=== PATIENT | female | born 1950 | race Caucasian/White ===

== ENCOUNTER 2019-03-29 06:18 | Inpatient (IN) | payer MEDICARE ==
[~2019-03-29 06:18] MED LIST: ACETAMINOPHEN 325 MG TABLET PO PRN; CEFAZOLIN SODIUM 2 GM in DEXTROSE 5%-WATER 100 ML IV PRN; CELECOXIB 200 MG CAPSULE PO PRN; GABAPENTIN 100 MG CAPSULE PO PRN; LACTATED RINGERS 1000 ML IV PRN; LIDOCAINE 0.5% INJ-PF (5 MG/ML) 50 ML SDV SUBCUT PRN; ONDANSETRON HCL INJ/PF 4 MG/2 ML SDV IV PRN; OXYCODONE HCL SR 10 MG TABLET PO PRN; SCOPOLAMINE HYDROBROMIDE 1.5 MG PATCH.TD72 TD PRN; TRAMADOL HCL 50 MG TABLET PO PRN; VANCOMYCIN HCL 1,000 MG in DEXTROSE 5%-WATER 250 ML IV PRN
[2019-03-29] MEDS ORDERED: MIDAZOLAM 2 MG/2 ML INJ ONE (07:03)
[2019-03-29] MEDS ORDERED: PROPOFOL INJ 200 MG/20 ML VIAL IV ONE (07:03)
[2019-03-29] MEDS ORDERED: FENTANYL CITRATE INJ/PF 100 MCG/2 ML AMPUL ONE (07:03)
[2019-03-29] MEDS ORDERED: TRANEXAMIC ACID INJ/PF 1,000 MG/10 ML SDV ONE ×2 (07:03→13:40)
[2019-03-29] MEDS ORDERED: ACETAMINOPHEN 325 MG TABLET ONE (08:18)
[2019-03-29] MEDS ORDERED: SCOPOLAMINE HYDROBROMIDE 1.5 MG PATCH.TD72 ONE (08:18)
[2019-03-29] MEDS ORDERED: CELECOXIB 200 MG CAPSULE ONE (08:18)
[2019-03-29] MEDS ORDERED: TRAMADOL HCL 50 MG TABLET ONE (08:18)
[2019-03-29] MEDS ORDERED: OXYCODONE HCL SR 10 MG TABLET PO ONE (08:18)
[2019-03-29] MEDS ORDERED: ONDANSETRON HCL INJ/PF 4 MG/2 ML SDV ONE (08:19)
[2019-03-29] MEDS ORDERED: VANCOMYCIN HCL INJ 1000 MG VIAL ONE (08:32)
[2019-03-29] MEDS ORDERED: BUPIVACAINE HCL 0.25 % INJ/PF (2.5 MG/1 ML) 30 ML VIAL ONE (08:32)
[2019-03-29] MEDS ORDERED: GENTAMICIN SULFATE INJ 80 MG/2 ML VIAL ONE (08:32)
[2019-03-29] MEDS ORDERED: BACITRACIN INJ 50,000 UNIT VIAL ONE (08:33)
[2019-03-29] MEDS ORDERED: KETOROLAC TROMETHAMINE INJ/PF 30 MG/1 ML SDV ONE (08:34)
[2019-03-29] MEDS ORDERED: DIAZEPAM INJ 10 MG/2 ML DISP.SYRIN ONE (08:51)
[2019-03-29] MEDS ORDERED: LIDOCAINE 1% INJ-PF (10 MG/ML) 30 ML SDV ONE (10:20)
[2019-03-29] MEDS ORDERED: ONDANSETRON HCL INJ/PF 4 MG/2 ML SDV IV PRN (11:32)
[2019-03-29] MEDS ORDERED: MEPERIDINE HCL/PF INJ 25 MG/1 ML DISP.SYRIN IV PRN (11:32)
[2019-03-29] MEDS ORDERED: OXYCODONE-ACETAMINOPHEN 5-325 MG TABLET PO PRN ×2 (11:32)
[2019-03-29] MEDS ORDERED: MORPHINE SULFATE 10 MG/ML INJ IV PRN (11:32)
[2019-03-29] MEDS ORDERED: DIPHENHYDRAMINE HCL 50 MG/ML VIAL IV PRN (11:32)
[2019-03-29] MEDS ORDERED: FENTANYL CITRATE INJ/PF 100 MCG/2 ML AMPUL IV PRN ×3 (11:32)
--- NOTE | 2019-03-29 12:55 | Operative Report ---
Operative Report DATE OF SURGERY: 03/29/19 PREOPERATIVE DIAGNOSIS: Severe right hip osteoarthritis POSTOPERATIVE DIAGNOSIS: Severe right hip primary osteoarthritis OPERATION: Right total hip arthroplasty SURGEON: KHAI URIOSTEGUI JR ANESTHESIA: Spinal COMPLICATIONS: None ESTIMATED BLOOD LOSS: 150 cc PROCEDURE: Implants: Biomet Taperloc micro-plasty #7 lateralized stem, 48 mm G7 acetabulum, 28 mm -6 ceramic head with a dual mobility construct. BRIEF HISTORY: 68year old female with severe degenerative arthritis of right hip, which has failed conservative treatment and has elected for a total hip arthroplasty. Risks include but are not limited to bleeding, infection, anesthesia, , injury to nerve or vessel, pain, scar, leg length inequality, dislocation, future surgery, and blood clots. Patient read through the pre-op counseling form and signed and solicited for surgery on their right hip. OPERATIVE PROCEDURE: Patient was brought to the operating room on and underwent spinal anesthesia. 2 grams of Ancef and 1 g of vancomycin was given. After proper anesthesia was obtained, patient was positioned, padded, prepped, and carlyn ped in the usual sterile fashion on the operating room table. Appropriate time out was performed. A anterior approach to the hip was undertaken with meticulous hemostasis. The femoral neck was cut in line with the femoral broach and the femoral head was removed. The acetabulum was then exposed with three retractors in an atraumatic fashion. Soft tissue and osteophytes were removed. Medialization reaming was performed followed by anatomic reaming up to accept a 48 mm acetabulum. The 48 mm acetabulum was impacted into correct position and stability checked with Lupe test. Due to the patient's spine disease include a multilevel fusion, the decision was made to proceed with a dual mobility construct. A dual mobility liner was impacted into the shell with good stability. Impinging osteophytes were removed. Attention was then directed toward the femur, which was exposed with two retractors in an atraumatic fashion. corner cutter, lateralization rasping and then broaching up to accept a #8 femur. With a lateralized offset neck and a 6 head, stability was good in flexion and extension with 5 mm long operative leg length. Because of this leg length discrepancy we decided to return to a #7 broach and then calcar ream down to the level of the broach. After doing this we re-broached with a #7 to ensure ideal seating. We then re-trialed with a lateralized -6 head which still had ideal stability and now equal leg lengths. The real #7 lateral offset femur was impacted into a copiously irrigated femoral canal. A 28 m -6 ceramic head in conjunction with a dual mobility liner was impacted on a clean dry femoral taper. The hip was irrigated and reduced, further irrigation with antibiotic solution, betadine solution, then antibiotic solution. Bleeders were coagulated with bovie cautery. The fascia was then closed with number 2 Stratofix; the subcutaneous tissue closed with interrupted 2-0 Monocryl then running 3-0 monocryl subcuticular. Dermabond skin glue was applied followd by a silver dressing. All needle sponge and instrument counts were correct. Patient was awakened from sedation anesthesia and taken to recovery room in good condition. Thank you, Khai Uriostegui,
[2019-03-29] MEDS ORDERED: EPINEPHRINE INJ/PF 1 MG/1 ML AMPULE ONE (13:06)
--- NOTE | 2019-03-29 14:22 | RADIOLOGY REPORT (SQ) ---
EXAM DESCRIPTION: HIP IN OPERATING RM; NO CHG FLUORO COMPLETED DATE/TIME: 03/29/2019 1:48 pm REASON FOR STUDY: RIGHT HIP ARTHROPLASTY ASST WITH FLUORO IN OR M16.4 BILATERAL POST-TRAUMATIC OSTE OARTHRITIS OF HIP COMPARISON: None. FLUOROSCOPY TIME: Less than 5 seconds 2 digital fluoroscopic images saved to PACS. TECHNIQUE: Intra-operative images acquired during surgical procedure to evaluate progress. NUMBER OF IMAGES: 2 digital fluoroscopic images LIMITATIONS: None. FINDINGS: Intra procedural imaging and fluoro during right hip replacement IMPRESSION: IMAGE(S) OBTAINED DURING PROCEDURE. COMMENT: Quality ID 145: Final reports for procedures using fluoroscopy that document radiation exp osure indices, or exposure time and number of fluorographic images (if radiation exposure indices are not available) Please consult full operative report of the attending physician for description of the procedure. TECHNICAL DOCUMENTATION: JOB ID: [id number] [employer]- All Rights Reserved Reading location - IP/workstation name: [email or web address]
--- NOTE | 2019-03-29 14:22 | RADIOLOGY REPORT (SQ) ---
EXAM DESCRIPTION: HIP IN OPERATING RM; NO CHG FLUORO COMPLETED DATE/TIME: 03/29/2019 1:48 pm REASON FOR STUDY: RIGHT HIP ARTHROPLASTY ASST WITH FLUORO IN OR M16.4 BILATERAL POST-TRAUMATIC OSTE OARTHRITIS OF HIP COMPARISON: None. FLUOROSCOPY TIME: Less than 5 seconds 2 digital fluoroscopic images saved to PACS. TECHNIQUE: Intra-operative images acquired during surgical procedure to evaluate progress. NUMBER OF IMAGES: 2 digital fluoroscopic images LIMITATIONS: None. FINDINGS: Intra procedural imaging and fluoro during right hip replacement IMPRESSION: IMAGE(S) OBTAINED DURING PROCEDURE. COMMENT: Quality ID [id number]: Final reports for procedures using fluoroscopy that document radiation exp osure indices, or exposure time and number of fluorographic images (if radiation exposure indices are not available) Please consult full operative report of the attending physician for description of the procedure. TECHNICAL DOCUMENTATION: JOB ID: [id number] [employer]- All Rights Reserved Reading location - IP/workstation name: [email or web address]
[2019-03-29] MEDS ORDERED: OXYCODONE HCL IR 5 MG TABLET PO PRN ×2 (14:33→14:34)
[2019-03-29] MEDS ORDERED: TRAMADOL HCL 50 MG TABLET PO PRN (14:35)
[2019-03-29] MEDS ORDERED: DIPHENHYDRAMINE HCL 25 MG CAPSULE PO PRN (14:40)
[2019-03-29] MEDS ORDERED: ZOLPIDEM TARTRATE 5 MG TABLET PO PRN (14:41)
[2019-03-29] MEDS ORDERED: NORMAL SALINE 1000 ML 1,000 ML IV PRN (14:43)
[2019-03-29] MEDS ORDERED: ONDANSETRON 4 MG TAB.RAPDIS PO PRN (14:44)
[2019-03-29] MEDS ORDERED: DOCUSATE SODIUM 100 MG CAPSULE PO PRN (14:57)
--- NOTE | 2019-03-29 14:58 | RADIOLOGY REPORT (SQ) ---
EXAM DESCRIPTION: PELVIS AP COMPLETED DATE/TIME: 03/29/2019 2:14 pm REASON FOR STUDY: POST OP M16.4 BILATERAL POST-TRAUMATIC OSTEOARTHRITIS OF HIP COMPARISON: None. NUMBER OF VIEWS: One view TECHNIQUE: Digital radiographic images of the pelvis post-procedure LIMITATIONS: None. FINDINGS: BONES: No worrisome or unexpected findings post-procedure. DEVICE: Right total hip arthroplasty. SOFT TISSUES: No worrisome findings. Expected postoperative soft tissue changes. IMPRESSION: SATISFACTORY POSTOPERATIVE PELVIS. TECHNICAL DOCUMENTATION: JOB ID: [id number] [employer]- All Rights Reserved Reading location - IP/workstation name: [email or web address]
[2019-03-29] MEDS ORDERED: PANTOPRAZOLE SODIUM 20 MG TABLET.DR PO ONE (15:00)
[2019-03-29] MEDS: KETOROLAC TROMETHAMINE INJ/PF 30 MG/1 ML SDV IV SCH ×2 (16:13→22:41)
[2019-03-29] MEDS: ACETAMINOPHEN 325 MG TABLET PO SCH ×2 (16:26→22:38)
[2019-03-29] MEDS ORDERED: GABAPENTIN 100 MG CAPSULE PO SCH (18:00)
[2019-03-29] MEDS ORDERED: (PENDING PHARMACY ID) (Calcium Carb/Vitamin D3/Vit K1 [Calcium + D Soft Chewable Tab] 1 TA PO SCH (18:00)
[2019-03-29] MEDS: MORPHINE SULFATE 10 MG/ML INJ IV PRN (20:04)
[2019-03-29] MEDS ORDERED: GABAPENTIN 300 MG CAPSULE PO SCH (21:00)
[2019-03-29] MEDS ORDERED: ROPINIROLE HCL 1 MG TABLET PO SCH (22:00)
[2019-03-29] MEDS: CEFAZOLIN SODIUM 2 GM in DEXTROSE 5%-WATER 100 ML IV SCH (22:43)
[2019-03-30] MEDS: MORPHINE SULFATE 10 MG/ML INJ IV PRN ×2 (01:41→08:43)
[2019-03-30] MEDS: KETOROLAC TROMETHAMINE INJ/PF 30 MG/1 ML SDV IV SCH (05:33)
[2019-03-30] MEDS: ACETAMINOPHEN 325 MG TABLET PO SCH (05:33)
[2019-03-30] MEDS: CEFAZOLIN SODIUM 2 GM in DEXTROSE 5%-WATER 100 ML IV SCH (05:36)
[2019-03-30] MEDS ORDERED: CHOLECALCIFEROL (D3) 1,000 UNIT (25 MCG) TABLET PO SCH (10:00)
[2019-03-30] MEDS ORDERED: POLYETHYLENE GLYCOL 3350 POWDER 17 GM/1 PACKET PO SCH (10:00)
[2019-03-30] MEDS ORDERED: LOSARTAN POTASSIUM 50 MG TABLET PO SCH (10:00)
[2019-03-30] MEDS ORDERED: HYDROCHLOROTHIAZIDE 25 MG TABLET PO SCH (10:00)
[2019-03-30] MEDS ORDERED: CYANOCOBALAMIN (VITAMIN B-12) 1,000 MCG TABLET PO SCH (10:00)
[2019-03-30] MEDS ORDERED: ZINC GLUCONATE 50 MG PO SCH (10:00)
[2019-03-30] MEDS ORDERED: ASPIRIN 325 MG TABLET PO SCH (10:00)
[2019-03-30] MEDS ORDERED: CELECOXIB 200 MG CAPSULE PO SCH (10:00)
[2019-03-30] MEDS ORDERED: CALCIUM CARBONATE 250 MG/VITAMIN D3 125 UNIT TABLET PO SCH (10:00)
[2019-03-30 11:31] VITALS: BP 116/70
[2019-03-30] MEDS ORDERED: ROPINIROLE HCL 12 MG PO SCH (13:00)
--- NOTE | 2019-04-06 10:44 | PDOC DISCHARGE SUMMARY ---
Impression - Admit/DC Date/PCP Admission Date/Primary Care Provider: 03/29/19 07:33 Discharge Date: 03/30/19 - Assessment Summary: Silvestre Ashford is a very pleasant 68-year-old female who presented to my clinic with chronic right hip pain that is been going on for over a year. After thorough work-up and attempts at conservative treatment including activity modification and [id number]-[id number] pain medication, they were having severe difficulty with ambulation and was over the counter pain medication for daily activity. They found the pain debilitating and decreasing thier quality of life as they were unable to perform activities of daily living such as ambulating short distances and getting in and out of the car. After a thorough work-up including x-rays that demonstrated joint space narrowing, uuwj-uk-ngnl contact, subchondral sclerosis, and osteophyte formation as well as discussing risks and benefits and other treatment options, the patient elected to proceed with a right total hip arthroplasty. They were brought to the operating room on 03/29/2019 and underwent a right total hip arthroplasty and tolerated procedure very well with out complication. They were then admitted to the hospital floor for postoperative medical management, monitoring, and pain control. On postoperative day #1 they were ambulating well with physical therapy, to the degree that they approved them for discharge home. They were discharged home on 03/30/2019. They had no acute events or complications over the course of their stay. All detailed instructions and prescriptions were provided to the patient prior to admission on the year prior office visit. - Additional Information Resuscitation Status: Full Code Discharge Diet: As Tolerated Discharge Activity: Activity As Tolerated, No Driving, No Lifting/Push/Pulling, Slowly Increase Activity, Walk Frequently Referrals: RBITTNEY URIOSTEGUI JR, DO [ACTIVE PROVISIONAL STAFF] - 04/09/19 2:00 pm Home Medications: Calcium Carb/Vitamin D3/Vit K1 [Calcium + D Soft Chewable Tab] 1 tab PO BID 03/22/19 Cholecalciferol (Vitamin D3) [Vitamin D3] 2,000 unit PO DAILY 03/22/19 Cyanocobalamin (Vitamin B-12) [Vitamin B-12 500 mcg Tablet] 500 mg PO DAILY 03/22/19 Gabapentin [Neurontin 300 mg Capsule] 300 mg PO BID@1300,2100 03/22/19 Hydrochlorothiazide [Hydrodiuril 25 mg Tablet] 25 mg PO DAILY 03/22/19 Losartan Potassium 100 mg PO DAILY 03/22/19 Pravastatin Sodium [Pravachol] 10 mg PO QHS 03/22/19 Ropinirole HCl 4 mg PO DAILY@2100 03/22/19 Ropinirole HCl [Requip Xl] 12 mg PO DAILY@1300 03/22/19 Zinc Gluconate [Zinc] 50 mg PO DAILY 03/22/19 History of Present Illiness History of Present Illness: SILVESTRE ASHFORD is a 68 year old female Physical Exam Vital Signs: Temp Pulse Resp BP Pulse Ox 98.2 F 80 18 116/70 99 03/30/19 10:28 03/30/19 10:28 03/30/19 10:28 03/30/19 10:28 03/30/19 10:28 Results Laboratory Results: Potassium 3.6 mmol/L (3.6-5.0) 03/29/19 08:15 Blood Type A POSITIVE 03/29/19 08:15 Antibody Screen NEGATIVE 03/29/19 08:15 Impressions: Fluoroscopy 03/29/19 00:00 IMPRESSION: IMAGE(S) OBTAINED DURING PROCEDURE. Hip X-Ray 03/29/19 00:00 IMPRESSION: IMAGE(S) OBTAINED DURING PROCEDURE. Pelvis X-Ray 03/29/19 00:00 IMPRESSION: SATISFACTORY POSTOPERATIVE PELVIS. Stroke Is this a Stroke Patient?: No Acute Heart Failure - Is this a Heart Failure Patient?: No
== END 2019-03-30 11:00 | disposition home or self-care (01) | DRG 470 ==
LOC: INOR 07:33 → 4N 15:39
PROVIDERS: ADMIT Orthopaedic Surgery; ATTEND Orthopaedic Surgery
PROC: 0SR902A Replacement of Right Hip Joint with Metal on Polyethylene Synthetic Substitute, Uncemented, Open Approach (ICD-10-PCS; principal; 2019-03-29 09:45)
DX: M16.11 Unilateral primary osteoarthritis, right hip (principal); M25.751 Osteophyte, right hip
CPT/HCPCS: 01214; 36415; 72170; 84132; 86850; 86900; 86901; 94799; J0171; J0690; J1580; J1885; J2250; J2270; J2405; J2704; J3010; J3360; J3370; J3490; J7060